=== PATIENT | male | born 1965 | race Caucasian/White ===

== ENCOUNTER 2017-08-26 04:55 | Emergency (ER) | payer OTHER ==
[~2017-08-26] VITALS: Ht 177.8 cm; Wt 78.5 kg
[~2017-08-26 04:55] MED LIST: CLINDAMYCIN HC300 MG PO; COLACE100 MG PO; COUMADIN5 MG PO; Cordarone, Pacerone PO; Flomax PO; K-DUR20 MEQ PO; Lopressor PO; METOPROLOL SUCC25 MG PO; METOPROLOL TART25 MG PO; OxyCODONE PO; PACERONE200 MG PO; PEN-VEE K,VEET500 MG PO; PLAVIX75 MG PO; Pyridium PO; ROPINIROLE HCL2 MG; ROPINIROLE HCL4 MG PO; Requip PO; SENOKOT S,PE1 TABLET PO; THERAGRAN1 TABLET PO; TRIHEXYPHENIDYL2 MG PO; Tylenol Regular Stre PO; WARFARIN SODIUM5 MG PO; Xanax PO; ZESTRIL,PRINIVI10 MG PO; Zocor PO
[2017-08-26 05:53] LABS: HEMATOCRIT 45.5 % (38.0-50.0); HEMOGLOBIN 15.8 G/DL (12.5-16.6); MCHC 34.7 G/DL (30.0-36.0); MCV 86.3 FL (86-99); PLATELET COUNT 203 K/uL (156-360); RBC DIS.WIDTH-CV 12.8 % (11.8-14.6); RBC DIS.WIDTH-SD 39.8 % (39-53); RED BLOOD COUNT 5.27 M/uL (4.00-5.50); WHITE BLOOD COUNT 6.8 K/uL (4.1-10.2)
[2017-08-26 06:24] LABS: ALBUMIN 3.7 g/dL (3.2-4.8); CHLORIDE 113 mEq/L (99-109); POTASSIUM 3.7 mEq/L (3.7-5.4); SODIUM 140 mEq/L (136-147)
[2017-08-26 06:26] LABS: GLUCOSE 104 mg/dL (70-99); TOTAL PROTEIN 5.8 g/dL (6.4-8.3)
[2017-08-26 06:28] LABS: TOTAL BILIRUBIN 0.4 mg/dL (0.0-1.0)
[2017-08-26 06:30] LABS: ALKALINE PHOSPHATASE 53 IU/L (3-129); CREATININE 0.8 mg/dL (0.6-1.3); GFR ESTIMATE (CALCULATED) > 59 mL/min/ (58.99-99999)
[2017-08-26 06:31] LABS: UREA NITROGEN (BUN) 12 mg/dL (9-23)
[2017-08-26 06:32] LABS: AST (GOT) 21 IU/L (2-34)
[2017-08-26 06:33] LABS: ALT (GPT) 24 IU/L (3-49); LIPASE 50 U/L (1.0-51.0)
[2017-08-26] MEDS ORDERED: FLOMAX0.4 MG PO (06:36)
[2017-08-26] MEDS ORDERED: MOTRIN800 MG PO (06:36)
[2017-08-26] MEDS ORDERED: ZOFRAN4 MG PO (06:36)
[2017-08-26 06:37] LABS: APPEARANCE CLEAR ((CLEAR)); BILIRUBIN NEGATIVE; BLOOD LARGE; COLOR YELLOW ((YELLOW)); GLUCOSE (STRIP) NEGATIVE; KETONES NEGATIVE; LEUKOCYTES NEGATIVE; NITRITE NEGATIVE; PROTEIN (STRIP) NEGATIVE; SPECIFIC GRAVITY 1.013 (1.000-1.030); UROBILINOGEN 0.2 MG/DL (0.2-1.0)
[2017-08-26 06:40] LABS: BACTERIA RARE /HPF; EPITHELIAL CELLS RARE /HPF; MUCUS TRACE /LPF; RED BLOOD CELLS 30-40 /HPF (0-5); UCUL ADDED? NO; WHITE BLOOD CELLS 0-5 /HPF (0-5)
[2017-08-26 07:15] VITALS: BP 147/79
== END 2017-08-26 07:17 | disposition home or self-care (01) ==
LOC: EME 04:55
PROVIDERS: Nurse Practitioner Family
DX: N20.1 Calculus of ureter (principal); R10.33 Periumbilical pain; I69.398 Other sequelae of cerebral infarction; H53.2 Diplopia; G25.2 Other specified forms of tremor; F17.220 Nicotine dependence, chewing tobacco, uncomplicated; Z79.01 Long term (current) use of anticoagulants; Z79.02 Long term (current) use of antithrombotics/antiplatelets; Z90.49 Acquired absence of other specified parts of digestive tract; Z85.9 Personal history of malignant neoplasm, unspecified; Z95.0 Presence of cardiac pacemaker; Z95.2 Presence of prosthetic heart valve; Z88.8 Allergy status to other drugs, medicaments and biological substances
CPT/HCPCS: 74176; 80053; 81003; 83690; 85027; 93005; 99281; 99285; J1885; J3010; J7030